=== PATIENT | female | born 1940 | race African-American/Black ===

== ENCOUNTER 2021-12-28 13:36 | Emergency (ER) | payer MEDICARE ==
[~2021-12-28 13:36] MED LIST: Iopamidol 300 61% 100 ML VIAL FS ONE
[2021-12-28 15:20] LABS: Hemoglobin 14.1 g/dL (12.0-15.5); Mean Corpuscular HGB CONC 35.3 g/dL (32.0-36.0); Mean Corpuscular Hemoglobin 29.5 pg (27.0-33.0); Mean Corpuscular Volume 83.5 fl (81.6-98.3); Mean Platelet Volume 9.5 fl (7.4-10.4); Platelet Count 387 10x3/uL (150-450); RBC Distribution Width 12.6 % (11.5-14.5); Red Blood Cell (RBC) Count 4.78 10x6/uL (3.90-5.03); White Blood Cell (WBC) Count 17.7 10x3/uL (3.5-10.5)
[2021-12-28 15:21] LABS: Manual Diff?? YES
[2021-12-28 15:28] LABS: ALT (SGPT) 63 U/L (8-55); AST (SGOT) 53 U/L (5-34); Alkaline Phosphatase 91 U/L (40-110); Anion Gap 18 mmol/L (10-20); BUN (Urea Nitrogen) 19 mg/dL (9.8-20.1); Bilirubin, Total 0.9 mg/dL (0.2-1.2); Calc. Creatinine Clearance 0 mL/min (70-130); Calcium 9.2 mg/dL (7.8-10.44); Carbon Dioxide 28 mmol/L (23-31); Chloride 91 mmol/L (98-107); Globulin 3.1 g/dL (2.4-3.5); Glucose 112 mg/dL (83-110); Potassium 3.1 mmol/L (3.5-5.1); Protein, Total 7.1 g/dL (5.8-8.1); Sodium 134 mmol/L (136-145)
[2021-12-28 15:51] LABS: CKMB 1.6 ng/mL (0-6.6)
[2021-12-28 15:54] LABS: Lymphocytes 16 % (21-51); Monocytes 4 % (0-10)
[2021-12-28 15:55] LABS: Diff Comment (RBC Morph SCRN) NORMAL; Neutrophil 80 % (42-75); Platelet Morphology Comment Appears Adequate
[2021-12-28] MEDS ORDERED: Ondansetron PF 4 MG/2 ML Vial ONE (16:16)
[2021-12-28 17:02] LABS: Bilirubin Neg (Negative); Blood, Urine 25 (Negative); Clarity Slightly Cloudy (Clear); Glucose, Urine (Dipstick) Normal (Negative); Ketone, Urine 5 mg/dL (Negative); Leukocyte 100 (Negative); Nitrite Negative (Negative); Protein, Urine (Dipstick) 100 mg/dl (Neg-Trace)
[2021-12-28 17:21] LABS: Bacteria/HPF 1+ HPF (None Seen); Squamous Epithelial 0-3 HPF (0-3)
[2021-12-28 17:22] LABS: Renal Epithelial 0-3 HPF (None Seen)
== END 2021-12-28 19:43 | disposition home or self-care (01) ==
LOC: CSHERS 13:36
DX: J18.9 Pneumonia, unspecified organism (principal); I10 Essential (primary) hypertension
CPT/HCPCS: 71045; 74177; 80053; 81003; 81015; 82553; 84484; 85025; 93005; 96365; 96366; 96375; J1956; J2405; Q9967